=== PATIENT | female | born 1975 | race Caucasian/White ===

== ENCOUNTER → 2018-10-14 | Outpatient (CLI) | payer OTHER ==
--- NOTE | 2018-10-14 11:59 | CT ---
EXAM DESCRIPTION: Head: Computed Tomography. CLINICAL HISTORY: TENSION TYPE HEADACHE COMPARISON: None. TECHNIQUE: Non-helical axial scans through the skull and brain, at 2 x 20 mm intervals, non-contrast. Coronal and sagittal 2 mm reconstructions. Total Exam DLP: 859.97 mGy-cm. This exam was performed according to our departmental dose-optimization program which includes automated exposure control, adjustment of the mA and/or kV according to patient size and/or use of iterative reconstruction technique; to reduce radiation dose to as low as reasonably achievable (ALARA). FINDINGS: No hemorrhage, no mass-effect, and no midline shift. Normal weems-white matter differentiation. No abnormal radiodense material In the brain parenchyma. Vascular calcifications not seen; physiologic calcifications in the pineal gland and choroid plexus. No effacement or displacement of the ventricles, CSF spaces, or subdural spaces. No extra axial fluid collection or hemorrhage. No gross abnormalities of the bony calvarium. Anterior septum deviates to the right. Posterior septum with right septal spur. IMPRESSION: 1. No hemorrhage, no mass effect, no midline shift. Normal noncontrast CT scan of the head. 2. CT scans are insensitive for detecting small CVAs in the first 24 hours after onset. Evaluation of the brain stem is also limited. If symptoms persist, consider NON-EMERGENT MRI scan of the brain with diffusion imaging. Electronically signed by: Reed Fuentes MD 10/14/2018 11:57 AM CDT
== END ==
LOC: CT 11:02
PROVIDERS: ATTEND Family Medicine
DX: G44.209 Tension-type headache, unspecified, not intractable (principal)